=== PATIENT | female | born 1985 | race American Indian/Alaskan Native ===

== ENCOUNTER 2021-05-21 21:04 | Emergency (ER) | payer OTHER ==
[2021-05-21 21:32] VITALS: BP 149/90
--- NOTE | 2021-05-22 00:52 | XRay Report ---
Cervical spine 3 views Indication: neck pain Findings: There is no fracture, subluxation, or other acute radiographic abnormality of the cervical spine. Signer Name: Ke Mackenzie MD Signed: 05/22/2021 12:47 AM Workstation Name: [id number]
[2021-05-22] MEDS ORDERED: IBUPROFEN 800 MG TAB PO ONE (00:58)
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
== END 2021-05-22 01:40 | disposition home or self-care (01) ==
LOC: ED 21:04
DX: S13.4XXA Sprain of ligaments of cervical spine, initial encounter (principal); Z98.890 Other specified postprocedural states; Z79.899 Other long term (current) drug therapy; Z91.013 Allergy to seafood; V49.49XA Driver injured in collision with other motor vehicles in traffic accident, initial encounter; Y93.89 Activity, other specified; Y92.410 Unspecified street and highway as the place of occurrence of the external cause; Y99.8 Other external cause status
CPT/HCPCS: 72040